=== PATIENT | female | born 1960 | race Caucasian/White ===

== ENCOUNTER → 2016-06-24 | Outpatient (REF) | payer BC ==
[~2016-06-24] MED LIST: /HCTZ25TA PO; CLON3PA TOP; FOLI1TAB86 PO; HYDR25TA PO; HYDR7.5T38 PO; METH4TAB6 PO; NITR100C37 PO; OMEP20CA3 PO; TAMS0.4C PO; VITA100T60 PO; ZEST10TA4 PO
[2016-06-26 00:07] LABS: ENDOMYSIAL ABY IgA Negative (Negative)
== END ==
LOC: M LAB REF 12:37
PROVIDERS: ATTEND Internal Medicine
DX: R19.7 Diarrhea, unspecified (principal)

== ENCOUNTER → 2016-07-14 | Outpatient (REF) | payer BC ==
[~2016-07-14] MED LIST changes: +BUSP15TA47 PO; +ESCI20TA PO; +LOSA50TA20 PO
== END ==
LOC: M LAB REF 11:09
PROVIDERS: ATTEND Physician Assistant Medical
DX: R19.7 Diarrhea, unspecified (principal)

== ENCOUNTER → 2016-07-26 | Outpatient (CLI) | payer BC ==
[~2016-07-26] VITALS: Ht 167.6 cm; Wt 84.4 kg
[~2016-07-26] MED LIST changes: +LIDOCAINE 2% INJ 100 MG/5 ML SDV (FOR ANES.) As Ordered ONE; +LOSARTAN 50 MG TAB PO ONE; +NS 1,000 ML IV SCH; +PROPOFOL 200 MG/20 ML VIAL As Ordered ONE
--- NOTE | 2016-07-26 10:55 | ROOR ---
Patient Name: Mounika Rodriguez Procedure Date: 07/26/2016 10:30 AM Date of : 1960 Age: 56 Room: [facility] Gender: Female Note Status: Finalized Procedure: Colonoscopy Indications: Screening for colorectal malignant neoplasm, Incidental diarrhea noted Providers: Rohan LIN MD Referring MD: Gabriella Kim DO Requesting Provider: Medicines: Monitored Anesthesia Care Complications: No immediate complications. Procedure: Pre-Anesthesia Assessment: - The heart rate, respiratory rate, oxygen saturations, blood pressure, adequacy of pulmonary ventilation, and response to care were monitored throughout the procedure. The Colonoscope was introduced through the anus and advanced to 6 cm into the ileum. The colonoscopy was performed without difficulty. The patient tolerated the procedure well. The quality of the bowel preparation was adequate. Findings: The perianal and digital rectal examinations were normal. Three sessile polyps were found in the splenic flexure, ascending colon and cecum. The polyps were 4 to 6 mm in size. These polyps were removed with a cold snare. Resection and retrieval were complete. The colon exam was otherwise without abnormality on direct and retroflexion views. The terminal ileum appeared normal. Biopsies for histology were taken with a cold forceps from the entire colon for evaluation of microscopic colitis. (Exam: Complete, Prep: Good or Excellent.) Impression: - Three 4 to 6 mm polyps at the splenic flexure, in the ascending colon and in the cecum, removed with a cold snare. Resected and retrieved. - The colon examination was otherwise normal on direct and retroflexion views. - The examined portion of the ileum was normal. - Biopsies were taken with a cold forceps from the entire colon for evaluation of microscopic colitis. Recommendation: - Repeat colonoscopy in 3 years for surveillance. - Telephone endoscopist for pathology results in 2 weeks. - RE Diarrhea:- Reduce/avoid alcohol (and caffeine) intake. reduce/avoid dailry products for 1 week, consider stopping Omeprazole for 1 week. Rohan Lin MD Rohan LIN MD 07/26/2016 10:54:55 AM This report has been signed electronically. Number of Addenda: 0 Note Initiated On: 07/26/2016 10:30 AM Estimated Blood Loss: Estimated blood loss: none.
[2016-07-26 11:21] VITALS: BP 170/81
== END | disposition home or self-care (01) ==
LOC: M OPP 07:32
PROVIDERS: ATTEND Internal Medicine Gastroenterology
DX: D12.3 Benign neoplasm of transverse colon (principal); D12.2 Benign neoplasm of ascending colon; D12.0 Benign neoplasm of cecum; R19.7 Diarrhea, unspecified; I10 Essential (primary) hypertension; K58.9 Irritable bowel syndrome, unspecified; R12 Heartburn; K21.9 Gastro-esophageal reflux disease without esophagitis; F32.9 Major depressive disorder, single episode, unspecified; F41.9 Anxiety disorder, unspecified; Z79.899 Other long term (current) drug therapy; Z80.3 Family history of malignant neoplasm of breast; Z80.8 Family history of malignant neoplasm of other organs or systems

== ENCOUNTER 2017-05-19 10:54 | Emergency (ER) | payer BC ==
[~2017-05-19] VITALS: Ht 167.6 cm; Wt 80.9 kg
[~2017-05-19 10:54] MED LIST changes: -LIDOCAINE 2% INJ 100 MG/5 ML SDV (FOR ANES.) As Ordered ONE; -LOSARTAN 50 MG TAB PO ONE; -NS 1,000 ML IV SCH; -PROPOFOL 200 MG/20 ML VIAL As Ordered ONE
[2017-05-19] MEDS ORDERED: NS 1,000 ML IV ONE (11:30)
[2017-05-19] MEDS ORDERED: KETOROLAC 30 MG/ML VIAL (J1885) IV ONE (11:30)
[2017-05-19] MEDS ORDERED: ONDANSETRON 4MG/2ML VIAL (J2405) IV PRN (11:30)
[2017-05-19 11:38] LABS: BASO % 0.5 % (0.0-1.0); EOS # 0.1 10^3/uL (0.0-0.50); EOS % 1.6 % (0.0-3.0); IMMATURE GRANULOCYTE % 0.5 % (0-0); LYMPH # 1.2 10^3/uL (1.5-4.5); LYMPH % 18.2 % (24.0-44.0); MEAN CORPUSCULAR HEMOGLOBIN 34.4 pg (27.0-33.0); MEAN CORPUSCULAR HGB CONC 34.4 g/dl (32.0-36.5); MONO # 0.5 10^3/uL (0.0-0.8); MONO % 8.2 % (0.0-5.0); NEUTROPHILS # 4.5 10^3/uL (1.8-7.7); PLATELET COUNT, AUTOMATED 200 10^3/uL (150-450); RED CELL DISTRIBUTION WIDTH 12.9 % (11.5-14.5); WHITE BLOOD COUNT 6.4 10^3/uL (4.0-10.0)
[2017-05-19 11:48] LABS: MUCUS, URINE RFX SMALL (NEGATIVE); SPECIFIC GRAVITY UR AUTO RFX 1.018 (1.002-1.035); SQUAM EPITHELIAL CELL UR AURFX 3 /HPF (0-6)
[2017-05-19 11:50] LABS: ALBUMIN 4.3 GM/DL (3.2-5.2); ALBUMIN/GLOBULIN RATIO 1.43 (1.00-1.93); ALKALINE PHOSPHATASE 134 U/L (45-117); ALT/SGPT 22 U/L (12-78); ANION GAP 10 MEQ/L (8-16); AST/SGOT 23 U/L (7-37); BILIRUBIN,DIRECT 0.2 MG/DL (0.0-0.2); BILIRUBIN,TOTAL 0.7 MG/DL (0.2-1.0); BLOOD UREA NITROGEN 17 MG/DL (7-18); CALCIUM LEVEL 9.3 MG/DL (8.5-10.1); CARBON DIOXIDE LEVEL 26 MEQ/L (21-32); CHLORIDE LEVEL 108 MEQ/L (98-107); CREATININE FOR GFR 0.98 MG/DL (0.55-1.02); GLOMERULAR FILTRATION RATE > 60.0 (>51); GLUCOSE, FASTING 120 MG/DL (70-105); POTASSIUM SERUM 3.7 MEQ/L (3.5-5.1); SODIUM LEVEL 144 MEQ/L (136-145); TOTAL PROTEIN 7.3 GM/DL (6.4-8.2)
[2017-05-19] MEDS ORDERED: CEFTRIAXONE SOD 1 GM in APPROPRIATE DILUENT 1 EA IV ONE (12:45)
[2017-05-19] MEDS ORDERED: CIPROFLOXACIN 500 MG TAB PO ONE (12:45)
[2017-05-19] MEDS ORDERED: NORCOTAB PO (12:47)
[2017-05-19] MEDS ORDERED: ZOFR4TAB3 PO (12:47)
[2017-05-19] MEDS ORDERED: FLOM5CAP PO (12:47)
[2017-05-19] MEDS ORDERED: CIPR-249 PO (12:47)
--- NOTE | 2017-05-19 13:38 | REP ---
CT ABDOMEN AND PELVIS WITHOUT CONTRAST: CT abdomen and pelvis performed without oral or IV contrast. Sagittal and coronal reconstruction images are performed. Visualized lung bases demonstrate no infiltrate. Liver demonstrates a 1 cm cyst in the posterior aspect of the left lobe unchanged since the prior study of 06/22/2015. Gallbladder is grossly unremarkable. Spleen is grossly unremarkable. Adrenal glands are diffuse thickened bilaterally with what appears to be a small oval low density adenoma in the right adrenal gland unchanged since the prior study. The pancreas is grossly unremarkable. No right renal stone or hydronephrosis is seen. There is mild left hydronephrosis caused by a 4 mm stone at the left ureteropelvic junction. There is mild to moderate atherosclerotic calcification of the abdominal aorta without aneurysm. There is no adenopathy. There is no free air or free fluid. No bowel wall thickening is seen. No pelvic mass is seen. The urinary bladder is not well distended and not well evaluated. IMPRESSION: There is a 4 mm calculus in the proximal left ureter at the ureteropelvic junction. There is mild left hydronephrosis. Signed by Ji Coronado MD 05/19/2017 03:53 P
[2017-05-19 13:52] VITALS: BP 134/67
== END 2017-05-19 14:09 | disposition home or self-care (01) ==
LOC: M ED 10:54
DX: N21.1 Calculus in urethra (principal); N30.00 Acute cystitis without hematuria; I10 Essential (primary) hypertension; F41.9 Anxiety disorder, unspecified; K21.9 Gastro-esophageal reflux disease without esophagitis; Z87.442 Personal history of urinary calculi; Z79.899 Other long term (current) drug therapy
CPT/HCPCS: 36415; 74176; 80048; 80076; 81001; 83690; 85025; 87088; 87186; 96365; 96375; 99284; J1885; J2405

== ENCOUNTER → 2017-08-07 | Outpatient (REF) | payer BC ==
[2017-08-09 08:06] LABS: LDL DIRECT 89 mg/dL (0-99)
== END ==
LOC: M LAB REF 17:34
DX: E78.6 Lipoprotein deficiency (principal)
CPT/HCPCS: 83721

== ENCOUNTER → 2017-08-11 | Outpatient (REF) | payer BC | LOC: M LAB REF 08-12 14:17 | DX: I10 Essential (primary) hypertension (principal) | CPT/HCPCS: 82384 ==

== ENCOUNTER 2018-01-18 08:13 | Emergency (ER) | payer BC ==
[2018-01-18] MEDS: ONDANSETRON 4MG/2ML VIAL (J2405) IV (08:45)
[2018-01-18] MEDS: NS 1,000 ML IV (08:45)
[2018-01-18] MEDS: MORPHINE 4 MG/ML 1ML VIAL/SYRINGE (J2270) IV (09:11)
[2018-01-18 09:26] LABS: BASO % 0.2 % (0.0-1.0); EOS # 0.1 10^3/uL (0.0-0.50); EOS % 2.4 % (0.0-3.0); HEMATOCRIT 36.6 % (36.0-47.0); HEMOGLOBIN 12.6 g/dl (12.0-15.5); IMMATURE GRANULOCYTE % 0.4 % (0-3.0); LYMPH # 0.8 10^3/uL (1.5-4.5); LYMPH % 14.8 % (24.0-44.0); MEAN CORPUSCULAR HEMOGLOBIN 34.4 pg (27.0-33.0); MEAN CORPUSCULAR HGB CONC 34.4 g/dl (32.0-36.5); MONO # 0.3 10^3/uL (0.0-0.8); MONO % 6.4 % (0.0-5.0); NEUTROPHILS # 4.1 10^3/uL (1.8-7.7); NEUTROPHILS % 75.8 % (36.0-66.0); PLATELET COUNT, AUTOMATED 198 10^3/uL (150-450); RED BLOOD COUNT 3.66 10^6/uL (4.00-5.40); RED CELL DISTRIBUTION WIDTH 12.2 % (11.5-14.5); WHITE BLOOD COUNT 5.3 10^3/uL (4.0-10.0)
[2018-01-18 09:46] LABS: AMORPHOUS SEDIMENT RFX SMALL (NEGATIVE); KETONE, URINE AUTO RFX NEGATIVE (NEGATIVE); LEUKOCYTE ESTERASE UR AUTO RFX 2+ (NEGATIVE); NITRITE, URINE AUTO RFX NEGATIVE (NEGATIVE); RBC, URINE AUTO RFX TNTC /HPF (0-3); SPECIFIC GRAVITY UR AUTO RFX 1.017 (1.002-1.035); SQUAM EPITHELIAL CELL UR AURFX 0 /HPF (0-6); URIC ACID CRYSTALS RFX LARGE; WBC, URINE AUTO RFX 82 /HPF (0-3)
[2018-01-18 09:49] LABS: LACTIC ACID SEPSIS PROTOCOL 1.7 MMOL/L (0.4-2.0)
[2018-01-18 09:49] LABS: ALBUMIN/GLOBULIN RATIO 1.25 (1.00-1.93); ALKALINE PHOSPHATASE 79 U/L (45-117); ALT/SGPT 18 U/L (12-78); AMYLASE 30 U/L (25-115); ANION GAP 8 MEQ/L (8-16); AST/SGOT 13 U/L (7-37); BILIRUBIN,DIRECT 0.2 MG/DL (0.0-0.2); BILIRUBIN,TOTAL 0.6 MG/DL (0.2-1.0); BLOOD UREA NITROGEN 27 MG/DL (7-18); CARBON DIOXIDE LEVEL 28 MEQ/L (21-32); CHLORIDE LEVEL 106 MEQ/L (98-107); CREATININE FOR GFR 1.42 MG/DL (0.55-1.30); GLOMERULAR FILTRATION RATE 40.3 (>51); GLUCOSE, FASTING 111 MG/DL (70-100); LIPASE 99 U/L (73-393); POTASSIUM SERUM 4.1 MEQ/L (3.5-5.1); SODIUM LEVEL 142 MEQ/L (136-145); TOTAL PROTEIN 7.2 GM/DL (6.4-8.2)
== END 2018-01-18 11:12 | disposition home or self-care (01) ==
LOC: M ED 08:13
DX: N39.0 Urinary tract infection, site not specified (principal); N13.2 Hydronephrosis with renal and ureteral calculous obstruction; Z87.891 Personal history of nicotine dependence
CPT/HCPCS: J2270

== ENCOUNTER → 2018-03-13 | Outpatient (CLI) | payer BC | LOC: M ADAMS 09:09 | DX: R93.7 Abnormal findings on diagnostic imaging of other parts of musculoskeletal system (principal); S20.221A Contusion of right back wall of thorax, initial encounter; S30.0XXA Contusion of lower back and pelvis, initial encounter; X58.XXXA Exposure to other specified factors, initial encounter | CPT/HCPCS: 71101 ==

== ENCOUNTER → 2018-05-08 | Outpatient (REF) | payer BC | LOC: M LABDRAW1 10:14 | DX: N39.0 Urinary tract infection, site not specified (principal) | CPT/HCPCS: 87086 ==

== ENCOUNTER → 2018-09-24 | Outpatient (REF) | payer BC ==
[~2018-09-24] MED LIST changes: -/HCTZ25TA PO; +CIPR-249 PO; +CLON0.3D2 TOP; -CLON3PA TOP; +FLOM0.4C39 PO; +HYDR-3644 PO; +HYDR-3715 PO; +HYDR-4266 PO; -HYDR25TA PO; +IBUP-1022 PO; -LOSA50TA20 PO; +LOSA50TA88 PO; +OLME20TA2; +PROM25TA12 PO; +ZOFR4TAB14 PO
== END ==
LOC: M LAB REF 16:06
PROVIDERS: ATTEND Internal Medicine
DX: R30.0 Dysuria (principal)

== ENCOUNTER 2018-12-17 07:17 | Emergency (ER) | payer BC ==
[~2018-12-17] VITALS: Ht 167.6 cm; Wt 77.7 kg
[~2018-12-17 07:17] MED LIST changes: +OMEP20CA4 PO
[2018-12-17] MEDS ORDERED: KETOROLAC 30 MG/ML VIAL (J1885) IV ONE (08:00)
[2018-12-17] MEDS ORDERED: PROMETHAZINE INJ 25 MG/ML VIAL (J2550) IV ONE (08:00)
[2018-12-17] MEDS ORDERED: NS 1,000 ML IV ONE (08:00)
[2018-12-17 08:20] LABS: BILIRUBIN, URINE MANUAL NEGATIVE (NEGATIVE); GLUCOSE, URINE (UA) MANUAL NEGATIVE (NEGATIVE); KETONE, URINE MANUAL NEGATIVE (NEGATIVE); UROBILINOGEN, URINE MANUAL NORMAL (NORMAL)
[2018-12-17 08:23] LABS: BACTERIA, URINE SMALL AMOUNT; RBC, URINE 0-1 /hpf (0-3); TRIPLE PHOSPHATE CRYSTAL,URINE MOD AMOUNT /hpf
[2018-12-17 08:26] LABS: BASO % 0.2 % (0.0-1.0); EOS % 0.2 % (0.0-3.0); HEMATOCRIT 35.8 % (36.0-47.0); HEMOGLOBIN 12.3 g/dl (12.0-15.5); LYMPH # 0.5 10^3/uL (1.5-4.5); LYMPH % 11.5 % (24.0-44.0); MEAN CORPUSCULAR HEMOGLOBIN 36.1 pg (27.0-33.0); MEAN CORPUSCULAR HGB CONC 34.4 g/dl (32.0-36.5); MONO # 0.2 10^3/uL (0.0-0.8); MONO % 4.4 % (0.0-5.0); NEUTROPHILS # 3.4 10^3/uL (1.8-7.7); NEUTROPHILS % 83.2 % (36.0-66.0); PLATELET COUNT, AUTOMATED 171 10^3/uL (150-450); RED BLOOD COUNT 3.41 10^6/uL (4.00-5.40); WHITE BLOOD COUNT 4.1 10^3/uL (4.0-10.0)
--- NOTE | 2018-12-17 08:40 | REP ---
CT of the abdomen pelvis without IV and oral contrast for left flank pain: Comparison is 01/18/2018. There is a 6 ml calculus in the mid left ureter at the L4 level with left hydroureter and hydronephrosis and left perinephric stranding. No other left renal calculi are identified. There are no bladder calculi. There are no right renal or ureteral calculi. No right perinephric stranding. The The visualized lung bonilla are unremarkable. The unenhanced hepatic parenchyma, gallbladder, pancreas, spleen, adrenals, abdominal aorta, bowel and mesentery are unremarkable. Pelvis: The the patient has an appendectomy. The uterus, adnexa and bladder are unremarkable. The pelvic bowel loops are unremarkable. There is no ascites or adenopathy. Impression: 6 ml calculus in the mid left ureter at the L4 level with left hydroureter return hydronephrosis and left perinephric stranding. Electronically Signed by Ji Mcallister MD 12/17/2018 08:32 A
[2018-12-17 08:45] LABS: ALBUMIN 3.9 GM/DL (3.2-5.2); BILIRUBIN,DIRECT 0.1 MG/DL (0.0-0.2); BILIRUBIN,TOTAL 0.5 MG/DL (0.2-1.0); TOTAL PROTEIN 6.9 GM/DL (6.4-8.2)
[2018-12-17] MEDS ORDERED: FLOM0.4C39 PO (09:42)
[2018-12-17 09:43] VITALS: BP 151/76
[2018-12-17] MEDS ORDERED: ZOFR4TAB16 PO (09:49)
[2018-12-17] MEDS ORDERED: NORC1TAB7 PO ×2 (09:49→10:09)
== END 2018-12-17 10:30 | disposition home or self-care (01) ==
LOC: M ED 07:17
DX: N21.1 Calculus in urethra (principal); N13.30 Unspecified hydronephrosis; I10 Essential (primary) hypertension; E78.5 Hyperlipidemia, unspecified; F41.9 Anxiety disorder, unspecified; F32.9 Major depressive disorder, single episode, unspecified; Z87.440 Personal history of urinary (tract) infections; Z87.442 Personal history of urinary calculi; Z79.899 Other long term (current) drug therapy
CPT/HCPCS: 36415; 74176; 80047; 80076; 81000; 83690; 85025; 87086; 96361; 96374; 96375; 99284; J1885

== ENCOUNTER → 2018-12-28 | Outpatient (CLI) | payer BC ==
[~2018-12-28] MED LIST changes: +NORC1TAB7 PO; +ZOFR4TAB16 PO
== END ==
LOC: M OUTALCOH 08:00
PROVIDERS: ATTEND Psychiatry & Neurology Psychiatry
DX: F12.20 Cannabis dependence, uncomplicated (principal); F10.20 Alcohol dependence, uncomplicated

== ENCOUNTER → 2019-01-15 | Outpatient (CLI) | payer BC ==
--- NOTE | 2019-01-15 08:16 | REP ---
PA and lateral chest: Comparison is 07/09/2013. The lung bonilla are clear. The cardiac size is normal. The jono, mediastinum, and skeletal structures are unremarkable. Impression: Negative PA and lateral chest. The discoid atelectasis identified inferiorly in the left lung on the prior study has resolved. Electronically Signed by Ji Mcallister MD 01/15/2019 08:08 A
[2019-01-15 08:20] LABS: HEMATOCRIT 34.4 % (36.0-47.0); HEMOGLOBIN 11.5 g/dl (12.0-15.5); MEAN CORPUSCULAR HEMOGLOBIN 35.5 pg (27.0-33.0); MEAN CORPUSCULAR HGB CONC 33.4 g/dl (32.0-36.5); MEAN CORPUSCULAR VOLUME 106.2 fl (80.0-96.0); PLATELET COUNT, AUTOMATED 190 10^3/uL (150-450); RED BLOOD COUNT 3.24 10^6/uL (4.00-5.40); WHITE BLOOD COUNT 2.9 10^3/uL (4.0-10.0)
[2019-01-15 08:37] LABS: HEMOGLOBIN A1c 5.4 %
[2019-01-15 08:46] LABS: ALBUMIN 3.9 GM/DL (3.2-5.2); ALT/SGPT 47 U/L (12-78); BILIRUBIN,TOTAL 0.5 MG/DL (0.2-1.0); BLOOD UREA NITROGEN 16 MG/DL (7-18); CARBON DIOXIDE LEVEL 29 MEQ/L (21-32); CHLORIDE LEVEL 105 MEQ/L (98-107); CHOLESTEROL LEVEL 218 MG/DL (<200); CHOLESTEROL RISK RATIO 2.831 (<5); CREATININE FOR GFR 0.87 MG/DL (0.55-1.30); GLOMERULAR FILTRATION RATE > 60.0 (>45); GLUCOSE, FASTING 96 MG/DL (70-100); HDL CHOLESTEROL 77 MG/DL (>40); LDL CHOLESTEROL 112 MG/DL (<100); NON-HDL-C 141 MG/DL; POTASSIUM SERUM 4.4 MEQ/L (3.5-5.1); SODIUM LEVEL 141 MEQ/L (136-145); TOTAL PROTEIN 6.4 GM/DL (6.4-8.2); TRIGLYCERIDES LEVEL 145 MG/DL (<150)
[2019-01-15 09:00] LABS: TOTAL 25(OH) VITAMIN D 22.8 NG/ML (30.0-100.0)
--- NOTE | 2019-01-15 17:55 | ECGEPIP ---
[facility] Test Date: 2019-01-15 Pat Name: HILLARY GOODWIN Department: Room: - Gender: Female Information Services Assistant: MIGUEL : 1960 Requested By: Emmanuel Leos Order Number: [id number] Reading MD: Dieter Jackson Measurements Intervals [place] Rate: 59 P: 24 NE: 197 QRS: -3 QRSD: 95 T: 12 QT: 433 QTc: 432 Interpretive Statements SINUS BRADYCARDIA SIMILAR TO 01/18/18 Electronically Signed on 01-15-2019 17:55:18 EDT by Dieter Jackson
== END ==
LOC: M LAB 07:22
PROVIDERS: ATTEND Family Medicine
DX: R53.83 Other fatigue (principal); I10 Essential (primary) hypertension; E03.9 Hypothyroidism, unspecified

== ENCOUNTER 2019-01-23 16:00 | Outpatient (RCR) | payer BC | END 2019-01-26 | LOC: M OUTALCOH 16:00 | PROVIDERS: ATTEND Psychiatry & Neurology Psychiatry | DX: F12.20 Cannabis dependence, uncomplicated (principal); F10.20 Alcohol dependence, uncomplicated ==

== ENCOUNTER 2019-02-20 16:00 | Outpatient (RCR) | payer BC | END 2019-02-25 | LOC: M OUTALCOH 16:00 | PROVIDERS: ATTEND Psychiatry & Neurology Psychiatry | DX: F12.20 Cannabis dependence, uncomplicated (principal); F10.20 Alcohol dependence, uncomplicated ==

== ENCOUNTER 2019-03-26 10:00 | Outpatient (RCR) | payer BC | END 2019-03-28 | LOC: M OUTALCOH 10:00 | PROVIDERS: ATTEND Psychiatry & Neurology Psychiatry | DX: F12.20 Cannabis dependence, uncomplicated (principal); F10.20 Alcohol dependence, uncomplicated ==

== ENCOUNTER → 2019-04-14 | Outpatient (CLI) | payer BC ==
--- NOTE | 2019-04-14 09:41 | REP ---
A foot series: Four views. History: Right foot pain. Findings: Four views of the right foot demonstrate Achilles calcaneal spurring and mild osteoarthritis at the first MTP joint. No fractures seen. Bones, joints and soft tissues are otherwise unremarkable. Impression: Heel spurring and first MTP joint osteoarthritic spurring. No acute bony abnormality. Electronically Signed by Rah Oates MD 04/14/2019 09:32 A
== END ==
LOC: M ADAMS 09:14
PROVIDERS: ATTEND Physician Assistant Medical
DX: M77.31 Calcaneal spur, right foot (principal); M25.761 Osteophyte, right knee; M19.90 Unspecified osteoarthritis, unspecified site

== ENCOUNTER 2019-04-23 09:00 | Outpatient (RCR) | payer BC | END 2019-04-27 | LOC: M OUTALCOH 09:00 | PROVIDERS: ATTEND Psychiatry & Neurology Psychiatry | DX: F12.20 Cannabis dependence, uncomplicated (principal); F10.20 Alcohol dependence, uncomplicated ==

== ENCOUNTER → 2019-05-28 | Outpatient (RCR) | payer BC ==
[~2019-05-28] MED LIST changes: +OMEP-172 PO; -OMEP20CA4 PO
== END ==
LOC: M OUTALCOH 04-29 16:00
PROVIDERS: ATTEND Psychiatry & Neurology Psychiatry
DX: F12.20 Cannabis dependence, uncomplicated (principal); F10.20 Alcohol dependence, uncomplicated

== ENCOUNTER 2019-06-19 08:00 | Outpatient (RCR) | payer BC ==
[~2019-06-19 08:00] MED LIST changes: -OMEP-172 PO; +OMEP1CAP73 PO
== END 2019-06-28 ==
LOC: M OUTALCOH 08:00
PROVIDERS: ATTEND Psychiatry & Neurology Psychiatry
DX: F12.20 Cannabis dependence, uncomplicated (principal); F10.20 Alcohol dependence, uncomplicated

== ENCOUNTER → 2020-01-28 | Outpatient (REF) | payer BC ==
[2020-01-30 18:11] LABS: ANTINUCLEAR ANTIBODIES DIRECT Negative (Negative); Lyme Disease IgG/IgM Antibodie <0.91 ISR (0.00-0.90); Lyme Disease IgM Ab Quantitati <0.80 index (0.00-0.79)
== END ==
LOC: M LAB REF 18:56
PROVIDERS: ATTEND Registered Nurse
DX: M79.10 Myalgia, unspecified site (principal); M25.50 Pain in unspecified joint

== ENCOUNTER → 2020-02-27 | Outpatient (REF) | payer BC ==
[2020-02-27 13:29] LABS: IRON (FE) 70 UG/DL (50-170); PHOSPHORUS LEVEL 3.7 MG/DL (2.5-4.9); TOTAL PROTEIN 6.7 GM/DL (6.4-8.2)
[2020-02-27 13:36] LABS: TOTAL 25(OH) VITAMIN D 19.8 NG/ML (30.0-100.0); VITAMIN B12 LEVEL 376 PG/ML (247-911)
[2020-03-03 11:14] LABS: ALBUMIN 4.42 GM/DL (3.29-5.55); ALBUMIN % 65.9 % (55.8-66.1); ALPHA-1-GLOBULIN % 4.4 % (2.9-4.9); ALPHA-1-GLOBULINS 0.29 GM/DL (0.17-0.41); ALPHA-2-GLOBULINS 0.61 GM/DL (0.42-0.99); ALPHA-2-GLOBULINS % 9.1 % (7.1-11.8); BETA-1-GLOBULINS 0.46 GM/DL (0.28-0.60); BETA-1-GLOBULINS % 6.9 % (4.7-7.2); BETA-2-GLOBULINS 0.29 GM/DL (0.19-0.55); BETA-2-GLOBULINS % 4.4 % (3.2-6.5); GAMMA GLOBULIN % 9.3 % (11.1-18.8); GAMMA GLOBULINS 0.62 GM/DL (0.65-1.58)
== END ==
LOC: M LAB REF 12:25
PROVIDERS: ATTEND Registered Nurse
DX: M79.10 Myalgia, unspecified site (principal)

== ENCOUNTER → 2021-06-28 | Outpatient (CLI) | payer BC ==
[~2021-06-28] MED LIST changes: -ESCI20TA PO; +ESCI20TA16 PO; +LOSA50TA28 PO; -LOSA50TA88 PO
== END ==
LOC: M WHC 14:52
PROVIDERS: ATTEND Registered Nurse
DX: Z12.31 Encounter for screening mammogram for malignant neoplasm of breast (principal)

== ENCOUNTER → 2023-08-03 | Outpatient (REF) | payer MEDICARE ==
[~2023-08-03] MED LIST changes: -OLME20TA2; +OLME20TA50
== END ==
LOC: M SFHCDERM 13:27
PROVIDERS: ATTEND Nurse Practitioner Family
DX: L85.9 Epidermal thickening, unspecified (principal)

== ENCOUNTER → 2024-08-13 | Outpatient (CLI) | payer MEDICARE | LOC: M WHC 13:53 | PROVIDERS: ATTEND Internal Medicine | DX: Z12.31 Encounter for screening mammogram for malignant neoplasm of breast (principal); M81.0 Age-related osteoporosis without current pathological fracture ==

== ENCOUNTER → 2025-02-28 | Outpatient (REF) | payer MEDICARE ==
[~2025-02-28] MED LIST changes: -FLOM0.4C39 PO; -IBUP-1022 PO; +IBUP600T42 PO; +TAMS-18 PO
[2025-03-03 13:22] LABS: RUBEOLA IgG ANTIBODY > 300.00 AU/mL (>16.49)
== END ==
LOC: M LAB REF 12:28
PROVIDERS: ATTEND Internal Medicine
DX: Z02.1 Encounter for pre-employment examination (principal)